=== PATIENT | female | born 1950 | race Caucasian/White ===

== ENCOUNTER 2016-11-29 09:14 | Inpatient (IN) | payer BC ==
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
[2016-11-29 09:40] LABS: ADD DIFF? YES; ADD MORPH? NO; ADD SCAN? NO; ATYPICAL LYMPHOCYTE FLAG 0 (0-99); FRAGMENT RBC FLAG 0 (0-99); HEMATOCRIT 39.2 % (38.0-47.0); HEMOGLOBIN 12.8 g/dL (12.6-16.3); LEFT SHIFT FLG 40 (0-99); LIPEMIA HEMOLYSIS FLAG 80 (0-99); MEAN CELL HEMOGLOBIN CONCENTR. 32.7 g/dL (32.4-36.7); MEAN CELL VOLUME 88.9 fL (81.5-99.8); MEAN PLATELET VOLUME 10.1 fL (8.7-11.7); PLATELET CLUMPS FLAG 20 (0-99); PLATELET COUNT 313 10^3/uL (150-400); RED BLOOD CELL COUNT 4.41 10^6/uL (4.18-5.33); RED CELL DISTRIBUTION WIDTH 14.6 % (11.5-15.2)
[2016-11-29 09:49] LABS: INR 1.28 (0.83-1.16)
[2016-11-29 09:50] LABS: APTT 29.8 SEC (23.0-38.0)
[2016-11-29 09:52] LABS: ANION GAP 15 mEq/L (8-16); CALCIUM 8.5 mg/dL (8.5-10.4); CARBON DIOXIDE 19 mEq/l (22-31); CHLORIDE 107 mEq/L (97-110); ETHANOL SERUM < 10 mg/dL (0-10); GLOMERULAR FILTRATION RATE 56; GLUCOSE 144 mg/dL (70-100); SODIUM 141 mEq/L (134-144)
[2016-11-29] MEDS ORDERED: ONDANSETRON 4 MG/2 ML VIAL ONE ×2 (09:55→14:46)
[2016-11-29 10:12] LABS: PLATELET ESTIMATE ADEQUATE (ADEQ)
[2016-11-29] MEDS ORDERED: ONDANSETRON 4 MG/2 ML VIAL IVP ONE (10:14)
[2016-11-29] MEDS ORDERED: TRANEXAMIC ACID 1,000 MG in NS 100 ML IV ONE (10:31)
[2016-11-29] MEDS ORDERED: TRANEXAMIC ACID 1,000 MG in NS 500 ML IV ONE (10:31)
[2016-11-29] MEDS ORDERED: cefOXitin SODIUM 1 GM in D5W 50 ML IV ONE (10:32)
[2016-11-29] MEDS ORDERED: fentaNYL 100 MCG/2 ML INJ ONE ×3 (10:36→17:47)
[2016-11-29] MEDS ORDERED: fentaNYL 100 MCG/2 ML INJ IVP ONE (10:38)
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
[2016-11-29] MEDS ORDERED: REMIFENTANIL HCL 1 MG VIAL ONE (11:04)
[2016-11-29] MEDS ORDERED: PROPOFOL/EMULSION 500 MG/50 ML BOTTLE IV ONE (11:04)
[2016-11-29] MEDS ORDERED: LIDOCAINE 2% 100 MG/5 ML SYR ONE (11:05)
[2016-11-29] MEDS ORDERED: DEXAMETHASONE 4 MG/ML VIAL ONE ×2 (11:05→14:46)
[2016-11-29] MEDS ORDERED: ROCURONIUM 100 MG/10 ML VIAL ONE (11:05)
[2016-11-29] MEDS ORDERED: ETOMIDATE 20 MG/10 ML VIAL ONE (11:05)
[2016-11-29] MEDS ORDERED: epHEDrine SULFATE 10 MG/ML SYR ONE ×2 (11:05)
[2016-11-29] MEDS ORDERED: PHENYLEPHRINE HCL 100 MCG/ML SYR ONE ×3 (11:05→16:26)
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
[2016-11-29] MEDS ORDERED: PHENYLEPHRINE 10 MG/ML SDV ONE ×2 (12:25→14:10)
[2016-11-29] MEDS ORDERED: IOPAMIDOL (ISOVUE-300) 100 ML BTL ONE ×2 (12:42→13:03)
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
[2016-11-29 13:07] LABS: BICARBONATE 18 mEq/L (22-26); HEMOGLOBIN ABG 10.4 gm/dL (12.3-15.9); IONIZED CALCIUM 1.06 MMOL/L (1.12-1.30); MEASURED OXYGEN SATURATION 85 % (92-95); PCO2 50 mmHg (34-38); PO2 63 mmHg (65-75); SODIUM ABG 140 mEq/L (137-146); TCO2 19 mEq/L (23-27)
[2016-11-29] MEDS ORDERED: ROCURONIUM 50 MG/5 ML VIAL ONE (14:02)
[2016-11-29] MEDS ORDERED: CALCIUM CHLORIDE 1 GM/10 ML INJ ONE (14:12)
[2016-11-29 14:43] LABS: BASE EXCESS -11.5 mEq/L (-2.5-2.5); BICARBONATE 17 mEq/L (22-26); IONIZED CALCIUM 1.58 MMOL/L (1.12-1.30); MEASURED OXYGEN SATURATION 77 % (92-95); PCO2 49 mmHg (34-38); PO2 51 mmHg (65-75); SODIUM ABG 139 mEq/L (137-146); TCO2 18 mEq/L (23-27)
[2016-11-29] MEDS ORDERED: PROPOFOL 200 MG/20 ML VIAL ONE (14:51)
[2016-11-29 15:26] LABS: ALPHA ANGLE 65.8 degrees (53-72); K TIME 1.9 minutes (1-3); MAXIMUM AMPLITUDE 62.1 mm (50-70); R TIME 3.8 minutes (5-10); TEG CONTAINER Citrated Kaolin
[2016-11-29] MEDS ORDERED: SUGAMMADEX SODIUM 200 MG/2 ML VIAL IVP ONE (15:37)
[2016-11-29] MEDS ORDERED: MEPERIDINE 25 MG/ML SYR IVP PRN (16:44)
[2016-11-29] MEDS ORDERED: ALBUTEROL 3 ML DEYVIAL IH PRN (16:44)
[2016-11-29] MEDS ORDERED: METOCLOPRAMIDE 10 MG/2 ML VIAL IVP PRN (16:44)
[2016-11-29] MEDS ORDERED: HYDROmorphONE/DILAUDID 1 MG/ML SYR IVP PRN (16:44)
[2016-11-29] MEDS ORDERED: ONDANSETRON 4 MG/2 ML VIAL IVP PRN ×2 (16:44→17:58)
[2016-11-29] MEDS ORDERED: PROMETHAZINE HCL 25 MG/ML INJ IVP PRN (16:44)
[2016-11-29] MEDS ORDERED: LR 500 ML IV PRN (16:44)
[2016-11-29] MEDS ORDERED: NALOXONE HCL 0.4 MG/ML INJ IVP PRN ×2 (16:44→17:58)
[2016-11-29] MEDS ORDERED: DEXAMETHASONE 4 MG/ML VIAL IVP PRN (16:44)
[2016-11-29] MEDS ORDERED: fentaNYL 100 MCG/2 ML INJ IVP PRN (16:44)
--- NOTE | 2016-11-29 16:52 | POSTANESTH ---
Post Anesthetic Evaluation Cardiovascular Status: Tx Hyper/Hypo-tension Respiratory Status: Tx Decrease in SpO2 Level of Consciousness/Mental Status: Can Participate in Eval Pain Control: Inadeq, Add Tx Required Nausea/Vomiting Control: Adequate, Prn Tx Ordered Complications Possibly Related to Anesthesia: None Noted (in pain, precedex ordered will follow)
[2016-11-29] MEDS ORDERED: DEXMEDETOMIDINE HCL 400 MCG in NS 100 ML IV SCH (17:00)
[2016-11-29 17:51] LABS: HEMATOCRIT 23.7 % (38.0-47.0); HEMOGLOBIN 7.5 g/dL (12.6-16.3); MEAN CELL HEMOGLOBIN 29.4 pg (27.9-34.1); MEAN CELL HEMOGLOBIN CONCENTR. 31.6 g/dL (32.4-36.7); MEAN CELL VOLUME 92.9 fL (81.5-99.8); RED BLOOD CELL COUNT 2.55 10^6/uL (4.18-5.33); RED CELL DISTRIBUTION WIDTH 15.4 % (11.5-15.2)
--- NOTE | 2016-11-29 17:54 | POSTOPPROG ---
Post Op Note Date of Operation: 11/29/16 Surgeon: Earl Cantu Anesthesiologist: Salas Carlton Anesthesia: GET(General Endotracheal) Pre-op Diagnosis: Traumatic Pneumoperitoneum, pancreatic injury, complex right leg laceration Post-op Diagnosis: Perforated right colon, pancreatic contusion, complex right leg laceration Procedure: Ex Lap, Right elvi, ligation mesenteric/panc vein lac, repair r thigh lac Findings: hepatic flexure perforation, large degloving right thigh Inf/Abcess present in the surg proc area at time of surgery?: No EBL: 100-500 Drains: Jaden Moffett Specimen(s): right colon
[2016-11-29] MEDS ORDERED: LR 1,000 ML IV SCH (18:00)
[2016-11-29 18:17] LABS: ALANINE AMINOTRANSFERASE 60 IU/L (9-52); ALBUMIN 1.1 g/dL (3.5-5.0); ALKALINE PHOSPHATASE 36 IU/L (38-126); ANION GAP 11 mEq/L (8-16); ASPARTATE AMINOTRANSFERASE 142 IU/L (14-46); BILIRUBIN,TOTAL 0.8 mg/dL (0.1-1.4); CALCIUM 7.5 mg/dL (8.5-10.4); CARBON DIOXIDE 15 mEq/l (22-31); CHLORIDE 115 mEq/L (97-110); GLOMERULAR FILTRATION RATE 56; GLUCOSE 105 mg/dL (70-100); POTASSIUM 3.9 mEq/L (3.5-5.2); SODIUM 141 mEq/L (134-144); TOTAL PROTEIN 2.2 g/dL (6.3-8.2)
[2016-11-29] MEDS ORDERED: LORazepam 2 MG/ML INJ IVP PRN (18:17)
[2016-11-29 18:33] LABS: INR 2.04 (0.83-1.16); PROTIME(PATIENT) 23.2 SEC (12.0-15.0)
[2016-11-29] MEDS ORDERED: PHYTONADIONE 10 MG in NS 50 ML IV ONE (18:36)
[2016-11-29] MEDS: cefOXitin SODIUM 1 GM in D5W 50 ML IV SCH (18:37)
[2016-11-29 18:38] LABS: APTT 41.5 SEC (23.0-38.0)
[2016-11-29] MEDS: fentaNYL 100 MCG/2 ML INJ IVP PRN ×2 (20:27→22:00)
[2016-11-29 20:55] LABS: HEMATOCRIT 32.1 % (38.0-47.0); HEMOGLOBIN 10.5 g/dL (12.6-16.3)
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
[2016-11-29 20:58] LABS: COLOR RED; LEUKOCYTE ESTERASE,URINE 1+ (NEGATIVE); NITRITE,URINE NEGATIVE (NEGATIVE)
[2016-11-29] MEDS: NS 1,000 ML IV SCH (21:00)
[2016-11-29 21:03] LABS: RBC,URINE 50-182 /hpf (0-3); WBC,URINE 50-182 /hpf (0-3)
[2016-11-29 21:09] LABS: INR 1.42 (0.83-1.16); PROTIME(PATIENT) 17.3 SEC (12.0-15.0)
[2016-11-29 21:10] LABS: APTT 33.6 SEC (23.0-38.0)
[2016-11-29] MEDS ORDERED: ALBUMIN 5% 500 ML BOTTLE IV ONE (21:12)
--- NOTE | 2016-11-29 21:59 | TRAUMAPN ---
Assessment/Plan: postop anemia and coagulopathy - 2u PRBC and 2u FFP with good response. BP remains 90-100. Patient more comfortable with fentanyl as pressure allows. Abd drain thin, serosang, chest tube starting to thin, hooper less hemorrhagic, right thigh still sanguinous. tertiary survey completed with flexed right 4th digit - unable to straighten with diffusely swollen hand. no other new injuries identified. patient preparing to return to CT for repeat head imaging. will obtain pelvic images per discussion with dr. blood when stabilizes and right hand films as well. will add 2 additional units FFP for INR correction given soft BP and persistent thigh sang drainage. care plan reviewed with family at bedside and with nursing staff. Objective: Vital Signs Temp Pulse Resp BP Pulse Ox 36.9 C 112 H 14 99/55 L 100 11/29/16 20:00 11/29/16 20:00 11/29/16 20:00 11/29/16 20:00 11/29/16 20:00 Laboratory Results 11/29/16 20:45 11/29/16 17:45 11/28/16 11/29/16 11/30/16 05:59 05:59 05:59 Intake Total 25405.5 Output Total 1075 Balance 9884.5 PT 17.3 SEC (12.0-15.0) H 11/29/16 20:45 INR 1.42 (0.83-1.16) H 11/29/16 20:45
[2016-11-29] MEDS: FAMOTIDINE 20 MG/NACL 50 ML IV SCH (22:43)
[2016-11-29] MEDS ORDERED: ALBUMIN 5% 1,000 ML IV ONE (23:30)
[2016-11-29] MEDS ORDERED: DOPamine/DEXTROSE/250 ML BAG IV ONE (23:52)
[2016-11-30 01:01] LABS: BICARBONATE 16 mEq/L (22-26); MEASURED OXYGEN SATURATION 85 % (92-95); PCO2 39 mmHg (34-38); PO2 50 mmHg (65-75); TCO2 17 mEq/L (23-27)
[2016-11-30] MEDS ORDERED: PROPOFOL/EMULSION 1,000 MG/100 ML BOTTLE IV ONE (01:39)
--- NOTE | 2016-11-30 01:48 | TRAUMAPN ---
Assessment/Plan: progressive resp distress over past few hours, increasing oxygen requirements to 15L, pain difficult to control because of BP, paO2 50 on 15L. discussed elective intubation with for airway protection as pt showing signs of rapid decline. RSI performed. 7.5 ETT placed without difficulty. right 4th digit relocated and splinted. will notify ortho of hand fx in am (4/5 MC and phalynx fx). postop anemia and coagulopathy - 2u PRBC and 2u FFP with good response. BP remains 90-100. Patient more comfortable with fentanyl as pressure allows. Abd drain thin, serosang, chest tube starting to thin, hooper less hemorrhagic, right thigh still sanguinous. tertiary survey completed with flexed right 4th digit - unable to straighten with diffusely swollen hand. no other new injuries identified. patient preparing to return to CT for repeat head imaging. will obtain pelvic images per discussion with dr. blood when stabilizes and right hand films as well. will add 2 additional units FFP for INR correction given soft BP and persistent thigh sang drainage. care plan reviewed with family at bedside and with nursing staff. Objective: Vital Signs Temp Pulse Resp BP Pulse Ox 36.6 C 123 H 20 103/44 L 95 11/30/16 00:00 11/30/16 01:00 11/30/16 01:00 11/30/16 01:00 11/30/16 01:00 Laboratory Results 11/29/16 20:45 11/29/16 17:45 11/28/16 11/29/16 11/30/16 05:59 05:59 05:59 Intake Total 16742.5 Output Total 1705 Balance 9254.5 PT 17.3 SEC (12.0-15.0) H 11/29/16 20:45 INR 1.42 (0.83-1.16) H 11/29/16 20:45
[2016-11-30] MEDS: cefOXitin SODIUM 1 GM in D5W 50 ML IV SCH ×2 (01:53→08:47)
[2016-11-30] MEDS ORDERED: ETOMIDATE 40 MG/20 ML INJ ONE (01:57)
[2016-11-30] MEDS ORDERED: SUCCINYLCHOLINE CHLORIDE*ANESTHESIA ONLY*200 MG/10 ML SYR IVP ONE ×2 (01:57→02:15)
[2016-11-30] MEDS ORDERED: ETOMIDATE 40 MG/20 ML INJ IV ONE (02:15)
[2016-11-30] MEDS: fentaNYL/NACL 100 ML IV SCH ×2 (02:30→18:47)
[2016-11-30] MEDS: PROPOFOL/EMULSION 100 ML IV SCH ×3 (02:31→19:35)
[2016-11-30 04:25] LABS: HEMATOCRIT 24.7 % (38.0-47.0); HEMOGLOBIN 8.4 g/dL (12.6-16.3); LIPEMIA HEMOLYSIS FLAG 90 (0-99); MEAN CELL HEMOGLOBIN 29.8 pg (27.9-34.1); MEAN CELL VOLUME 87.6 fL (81.5-99.8); PLATELET CLUMPS FLAG 0 (0-99); RED BLOOD CELL COUNT 2.82 10^6/uL (4.18-5.33); RED CELL DISTRIBUTION WIDTH 15.6 % (11.5-15.2)
[2016-11-30 04:28] LABS: PLATELET COUNT 44 10^3/uL (150-400)
[2016-11-30 04:33] LABS: INR 1.48 (0.83-1.16); PROTIME(PATIENT) 17.9 SEC (12.0-15.0)
[2016-11-30 04:34] LABS: APTT 33.5 SEC (23.0-38.0)
[2016-11-30 04:44] LABS: ANION GAP 9 mEq/L (8-16); CARBON DIOXIDE 19 mEq/l (22-31); CHLORIDE 112 mEq/L (97-110); CREATININE 1.5 mg/dL (0.6-1.0); GLOMERULAR FILTRATION RATE 35; GLUCOSE 98 mg/dL (70-100); MAGNESIUM 1.5 mg/dL (1.6-2.3); POTASSIUM 3.8 mEq/L (3.5-5.2); SODIUM 140 mEq/L (134-144)
[2016-11-30 04:59] LABS: PLATELET ESTIMATE DECREASED (ADEQ)
[2016-11-30] MEDS ORDERED: MAGNESIUM SULF 4 GM/WATER 100 ML BAG IV ONE (05:30)
[2016-11-30] MEDS: NS 1,000 ML IV SCH ×2 (05:37→18:45)
[2016-11-30] MEDS ORDERED: PROTOCOL MAGNESIUM 1 DOSE IV PRN (06:00)
[2016-11-30] MEDS ORDERED: PROTOCOL POTASSIUM 1 DOSE MISC PRN (06:00)
--- NOTE | 2016-11-30 07:38 | GOP ---
[f rep st] OPERATIVE REPORT DATE OF OPERATION: 11/30/2016 SURGEON: Earl Cantu MD PREOPERATIVE DIAGNOSIS: Respiratory failure. POSTOPERATIVE DIAGNOSIS: Respiratory failure. PROCEDURE PERFORMED: Endotracheal intubation. DESCRIPTION OF PROCEDURE: The patient was pre oxygenated with a non-rebreather face mask. 30 mg of etomidate and 100 mg of succinylcholine was administered. A #3 Barnett blade was used. Vocal cords were easily visualized. A 7.5 endotracheal tube was passed to 22 cm from the teeth. End-tidal CO2 was noted on the colorimeter. Bilateral breath sounds were identified. The tube was secured. A portable chest x-ray was obtained immediately afterwards. The patient tolerated the procedure well. No hemodynamic changes occurred. /[id number]/MODL MTDD
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
[2016-11-30] MEDS ORDERED: POTASSIUM Cl (KCl) 50 ML IV ONE (08:44)
[2016-11-30] MEDS ORDERED: POTASSIUM Cl (KCl) 10 MEQ/100 ML BAG IV ONE (08:46)
[2016-11-30 08:52] LABS: ASSIST CONTROL YES; BICARBONATE 17 mEq/L (22-26); END TIDAL CO2 39; MEASURED OXYGEN SATURATION 99 % (92-95); O2 CONCENTRATIION 100 % (0-100); P/F RATIO 141 RATIO; PCO2 38 mmHg (34-38); PO2 141 mmHg (65-75); TCO2 18 mEq/L (23-27); TOTAL RATE 20
[2016-11-30] MEDS ORDERED: PARoxetine HCL 10 MG TAB PO SCH (09:00)
[2016-11-30] MEDS: FAMOTIDINE 20 MG/NACL 50 ML IV SCH (09:02)
[2016-11-30 10:07] LABS: ADD MORPH? NO; ADD SCAN? YES; ATYPICAL LYMPHOCYTE FLAG 0 (0-99); FRAGMENT RBC FLAG 0 (0-99); HEMATOCRIT 24.8 % (38.0-47.0); HEMOGLOBIN 8.5 g/dL (12.6-16.3); LIPEMIA HEMOLYSIS FLAG 90 (0-99); MEAN CELL HEMOGLOBIN 29.7 pg (27.9-34.1); MEAN CELL HEMOGLOBIN CONCENTR. 34.3 g/dL (32.4-36.7); MEAN CELL VOLUME 86.7 fL (81.5-99.8); MEAN PLATELET VOLUME 10.8 fL (8.7-11.7); PLATELET CLUMPS FLAG 0 (0-99); PLATELET COUNT 61 10^3/uL (150-400); RED BLOOD CELL COUNT 2.86 10^6/uL (4.18-5.33); RED CELL DISTRIBUTION WIDTH 15.7 % (11.5-15.2)
[2016-11-30 10:08] LABS: LEFT SHIFT FLG 300 (0-99)
[2016-11-30 10:20] LABS: INR 1.48 (0.83-1.16); PROTIME(PATIENT) 17.9 SEC (12.0-15.0)
[2016-11-30 10:21] LABS: APTT 33.7 SEC (23.0-38.0)
[2016-11-30 10:38] LABS: ADD DIFF? YES; SCAN POSITIVE
[2016-11-30 10:49] LABS: PLATELET ESTIMATE DECREASED (ADEQ)
[2016-11-30 10:50] LABS: ECHINOCYTES 1+; POLYCHROMASIA 1+
[2016-11-30] MEDS ORDERED: DOPamine/DEXTROSE/250 ML BAG IV ONE ×2 (11:00→14:00)
[2016-11-30] MEDS: NOREPINEPHRINE/NS 500 ML IV SCH ×2 (11:17→21:49)
[2016-11-30] MEDS: ERTAPENEM 1 GM in NS 100 ML IV SCH (11:21)
[2016-11-30 12:37] LABS: POTASSIUM 4.4 mEq/L (3.5-5.2)
[2016-11-30 14:21] LABS: % IMMATURE GRANULYOCYTES 0.9 % (0.0-1.1); ABSOLUTE IMMATURE GRANULOCYTES 0.08 10^3/uL (0.00-0.10); ADD DIFF? NO; ADD MORPH? NO; ADD SCAN? YES; ATYPICAL LYMPHOCYTE FLAG 0 (0-99); FRAGMENT RBC FLAG 0 (0-99); HEMATOCRIT 26.1 % (38.0-47.0); LIPEMIA HEMOLYSIS FLAG 90 (0-99); MEAN CELL HEMOGLOBIN 29.7 pg (27.9-34.1); MEAN CELL HEMOGLOBIN CONCENTR. 34.5 g/dL (32.4-36.7); MEAN CELL VOLUME 86.1 fL (81.5-99.8); MEAN PLATELET VOLUME 10.6 fL (8.7-11.7); PLATELET CLUMPS FLAG 10 (0-99); PLATELET COUNT 68 10^3/uL (150-400); RED BLOOD CELL COUNT 3.03 10^6/uL (4.18-5.33); RED CELL DISTRIBUTION WIDTH 15.9 % (11.5-15.2)
[2016-11-30 14:30] LABS: LEFT SHIFT FLG 300 (0-99)
[2016-11-30 14:40] LABS: INR 1.59 (0.83-1.16)
[2016-11-30 15:08] LABS: SCAN POSITIVE
[2016-11-30 15:14] LABS: PLATELET ESTIMATE DECREASED (ADEQ)
[2016-11-30 16:16] LABS: BASE EXCESS -8.2 mEq/L (-2.5-2.5); BICARBONATE 16 mEq/L (22-26); MEASURED OXYGEN SATURATION 95 % (92-95); PCO2 29 mmHg (34-38); PO2 74 mmHg (65-75); TCO2 17 mEq/L (23-27)
[2016-11-30 16:17] LABS: ASSIST CONTROL YES; END TIDAL CO2 32; TOTAL RATE 22
[2016-11-30 19:41] LABS: POTASSIUM 4.8 mEq/L (3.5-5.2)
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
--- NOTE | 2016-11-30 23:17 | SOAPPROG ---
Downtime Inpatient MD Late Entry SOAP Note: PM visit: Gabriela remains intubated/sedated, remains on Levophed and low dose Dopamine with good UO, CVP 12-13 Lungs diminished but clear, CVS RR/tachy, abd-absent bowel sounds/dressings dry , ext warm/dry with palpable pedal pulses ECHO-trivial pericardial effusion, RVSP 44/no sig valve problems repeat labs ordered Cont vent/ionotropic support Oh Clarke MD, FACS
[2016-11-30 23:18] LABS: ADD DIFF? YES; ADD MORPH? NO; ATYPICAL LYMPHOCYTE FLAG 0 (0-99); FRAGMENT RBC FLAG 0 (0-99); HEMOGLOBIN 8.3 g/dL (12.6-16.3); LIPEMIA HEMOLYSIS FLAG 90 (0-99)
[2016-11-30 23:22] LABS: MEAN CELL HEMOGLOBIN 29.9 pg (27.9-34.1); MEAN CELL HEMOGLOBIN CONCENTR. 34.6 g/dL (32.4-36.7); MEAN CELL VOLUME 86.3 fL (81.5-99.8); PLATELET CLUMPS FLAG 10 (0-99); PLATELET COUNT 57 10^3/uL (150-400); RED BLOOD CELL COUNT 2.78 10^6/uL (4.18-5.33); RED CELL DISTRIBUTION WIDTH 16.2 % (11.5-15.2)
[2016-11-30 23:24] LABS: LEFT SHIFT FLG 300 (0-99)
[2016-11-30 23:25] LABS: ADD SCAN? NO
[2016-11-30 23:27] LABS: INR 1.83 (0.83-1.16); PROTIME(PATIENT) 21.2 SEC (12.0-15.0)
[2016-11-30 23:28] LABS: APTT 35.5 SEC (23.0-38.0)
[2016-11-30 23:30] LABS: ANION GAP 9 mEq/L (8-16); CALCIUM 7.6 mg/dL (8.5-10.4); CARBON DIOXIDE 18 mEq/l (22-31); CHLORIDE 113 mEq/L (97-110); CREATININE 1.8 mg/dL (0.6-1.0); GLOMERULAR FILTRATION RATE 28; GLUCOSE 90 mg/dL (70-100); POTASSIUM 4.8 mEq/L (3.5-5.2); SODIUM 140 mEq/L (134-144)
[2016-11-30 23:55] LABS: PLATELET ESTIMATE DECREASED (ADEQ); POLYCHROMASIA 1+
[2016-12-01] MEDS: PROPOFOL/EMULSION 100 ML IV SCH ×3 (00:49→23:22)
[2016-12-01] MEDS: NOREPINEPHRINE/NS 500 ML IV SCH ×4 (01:55→20:31)
[2016-12-01] MEDS: NS 1,000 ML IV SCH ×2 (03:00→20:32)
[2016-12-01 05:39] LABS: ADD MORPH? NO; ADD SCAN? YES; ATYPICAL LYMPHOCYTE FLAG 0 (0-99); FRAGMENT RBC FLAG 0 (0-99); LIPEMIA HEMOLYSIS FLAG 90 (0-99)
[2016-12-01 05:42] LABS: ABSOLUTE NRBC COUNT 0.02 10^3/uL (0-0.01); HEMATOCRIT 22.7 % (38.0-47.0); MEAN CELL HEMOGLOBIN 30.4 pg (27.9-34.1); MEAN CELL HEMOGLOBIN CONCENTR. 35.2 g/dL (32.4-36.7); MEAN CELL VOLUME 86.3 fL (81.5-99.8); MEAN PLATELET VOLUME 11.1 fL (8.7-11.7); NRBC-AUTO% 0.2 % (0.0-0.2); PLATELET CLUMPS FLAG 10 (0-99); PLATELET COUNT 65 10^3/uL (150-400); RED BLOOD CELL COUNT 2.63 10^6/uL (4.18-5.33); RED CELL DISTRIBUTION WIDTH 16.7 % (11.5-15.2)
[2016-12-01 05:46] LABS: LEFT SHIFT FLG 300 (0-99)
[2016-12-01 05:48] LABS: ALANINE AMINOTRANSFERASE 69 IU/L (9-52); ALKALINE PHOSPHATASE 59 IU/L (38-126); ANION GAP 7 mEq/L (8-16); APTT 35.9 SEC (23.0-38.0); ASPARTATE AMINOTRANSFERASE 133 IU/L (14-46); BILIRUBIN,TOTAL 1.6 mg/dL (0.1-1.4); CALCIUM 7.5 mg/dL (8.5-10.4); CARBON DIOXIDE 18 mEq/l (22-31); CHLORIDE 114 mEq/L (97-110); CREATININE 1.9 mg/dL (0.6-1.0); GLOMERULAR FILTRATION RATE 27; GLUCOSE 88 mg/dL (70-100); INR 1.79 (0.83-1.16); MAGNESIUM 2.4 mg/dL (1.6-2.3); POTASSIUM 4.7 mEq/L (3.5-5.2); PROTIME(PATIENT) 20.9 SEC (12.0-15.0); SODIUM 139 mEq/L (134-144)
[2016-12-01 06:21] LABS: ADD DIFF? YES; SCAN POSITIVE
[2016-12-01 06:37] LABS: PLATELET ESTIMATE DECREASED (ADEQ); POLYCHROMASIA 1+
[2016-12-01 06:38] LABS: TOXIC GRANULATION PRESENT; TOXIC VACUOLIZATION PRESENT
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
[2016-12-01 08:52] LABS: COLOR AMBER; LEUKOCYTE ESTERASE,URINE NEGATIVE (NEGATIVE); NITRITE,URINE NEGATIVE (NEGATIVE)
[2016-12-01] MEDS: FAMOTIDINE 20 MG/NACL 50 ML IV SCH (09:11)
[2016-12-01] MEDS: ERTAPENEM 1 GM in NS 100 ML IV SCH (09:11)
[2016-12-01 09:15] LABS: AMORPHOUS PRESENT /hpf (NONE-1+); MUCUS TRACE /lpf (NONE-1+); RBC,URINE 50-182 /hpf (0-3); WBC,URINE 50-182 /hpf (0-3)
[2016-12-01] MEDS: PARoxetine HCL 10 MG TAB TUBE SCH (10:18)
[2016-12-01] MEDS: fentaNYL/NACL 100 ML IV SCH ×2 (10:18→20:32)
[2016-12-01 10:21] LABS: RANDOM URINE PROTEIN 86 mg/dL (0-11)
[2016-12-01] MEDS ORDERED: PHYTONADIONE 10 MG in NS 50 ML IV ONE (10:30)
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
[2016-12-01 13:18] LABS: HEMATOCRIT 20.7 % (38.0-47.0); HEMOGLOBIN 7.2 g/dL (12.6-16.3); MEAN CELL HEMOGLOBIN 30.4 pg (27.9-34.1); MEAN CELL HEMOGLOBIN CONCENTR. 34.8 g/dL (32.4-36.7); MEAN CELL VOLUME 87.3 fL (81.5-99.8); RED BLOOD CELL COUNT 2.37 10^6/uL (4.18-5.33); RED CELL DISTRIBUTION WIDTH 16.9 % (11.5-15.2)
[2016-12-01 13:31] LABS: POTASSIUM 4.5 mEq/L (3.5-5.2)
[2016-12-01 17:26] LABS: K TIME 1.2 minutes (1-3); R TIME 5.5 minutes (5-10); TEG CONTAINER Citrated Kaolin
[2016-12-01 17:27] LABS: ALPHA ANGLE 71.1 degrees (53-72); MAXIMUM AMPLITUDE 66.5 mm (50-70)
[2016-12-01 18:21] LABS: POTASSIUM 4.4 mEq/L (3.5-5.2)
[2016-12-01 19:14] LABS: HEMATOCRIT 27.6 % (38.0-47.0); HEMOGLOBIN 9.5 g/dL (12.6-16.3); MEAN CELL HEMOGLOBIN 29.9 pg (27.9-34.1); MEAN CELL HEMOGLOBIN CONCENTR. 34.4 g/dL (32.4-36.7); MEAN CELL VOLUME 86.8 fL (81.5-99.8); RED BLOOD CELL COUNT 3.18 10^6/uL (4.18-5.33); RED CELL DISTRIBUTION WIDTH 16.1 % (11.5-15.2)
[2016-12-01] MEDS ORDERED: PETROLAT,WHT/MIN OIL/SOD CHL 3.5 GM OPHT.OINT EACHEYE PRN (20:05)
[2016-12-01] MEDS ORDERED: BACITRACIN OINTMENT 1 PACKET TP PRN (21:12)
[2016-12-01] MEDS ORDERED: FUROSEMIDE 40 MG/4 ML VIAL IVP ONE (22:00)
[2016-12-01] MEDS ORDERED: LIDOCAINE 2% JELLY 20 ML (UROJECT) ONE (22:43)
[2016-12-01] MEDS ORDERED: LIDOCAINE 2% JELLY 5 ML TUBE ONE (22:48)
[2016-12-01 23:59] LABS: BASE EXCESS -8.7 mEq/L (-2.5-2.5); BICARBONATE 15 mEq/L (22-26); MEASURED OXYGEN SATURATION 97 % (92-95); PCO2 28 mmHg (34-38); PO2 95 mmHg (65-75); TCO2 16 mEq/L (23-27)
[2016-12-02] LABS: ASSIST CONTROL YES; END TIDAL CO2 33; O2 CONCENTRATIION 100 % (0-100); P/F RATIO 95 RATIO
[2016-12-02] MEDS: ACETYLCYSTEINE 20% IH/PO 30 ML VIAL IH SCH ×2 (00:24→06:09)
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
[2016-12-02 05:20] LABS: BASE EXCESS -7.6 mEq/L (-2.5-2.5); BICARBONATE 16 mEq/L (22-26); MEASURED OXYGEN SATURATION 91 % (92-95); PCO2 28 mmHg (34-38); PO2 61 mmHg (65-75); TCO2 17 mEq/L (23-27)
[2016-12-02 05:21] LABS: END TIDAL CO2 30; O2 CONCENTRATIION 70 % (0-100)
[2016-12-02 05:34] LABS: INR 1.36 (0.83-1.16); PROTIME(PATIENT) 16.8 SEC (12.0-15.0)
[2016-12-02 05:38] LABS: AMYLASE 140 IU/L (30-110); ANION GAP 9 mEq/L (8-16); CALCIUM 7.7 mg/dL (8.5-10.4); CARBON DIOXIDE 17 mEq/l (22-31); CHLORIDE 117 mEq/L (97-110); CREATININE 1.7 mg/dL (0.6-1.0); GLOMERULAR FILTRATION RATE 30; GLUCOSE 89 mg/dL (70-100); MAGNESIUM 2.1 mg/dL (1.6-2.3); SODIUM 143 mEq/L (134-144)
[2016-12-02 05:42] LABS: ADD MORPH? NO; ADD SCAN? YES; ATYPICAL LYMPHOCYTE FLAG 0 (0-99); FRAGMENT RBC FLAG 0 (0-99); HEMATOCRIT 26.6 % (38.0-47.0); HEMOGLOBIN 9.3 g/dL (12.6-16.3); LIPEMIA HEMOLYSIS FLAG 90 (0-99); MEAN CELL HEMOGLOBIN 30.2 pg (27.9-34.1); MEAN CELL VOLUME 86.4 fL (81.5-99.8); MEAN PLATELET VOLUME 12.1 fL (8.7-11.7); PLATELET CLUMPS FLAG 10 (0-99); PLATELET COUNT 56 10^3/uL (150-400); RED BLOOD CELL COUNT 3.08 10^6/uL (4.18-5.33); RED CELL DISTRIBUTION WIDTH 16.9 % (11.5-15.2)
[2016-12-02 05:48] LABS: LEFT SHIFT FLG 300 (0-99)
[2016-12-02] MEDS ORDERED: FUROSEMIDE 40 MG/4 ML VIAL IVP ONE ×3 (06:00→18:00)
[2016-12-02 06:16] LABS: ADD DIFF? YES; SCAN POSITIVE
[2016-12-02 06:20] LABS: PLATELET ESTIMATE DECREASED (ADEQ); TOXIC VACUOLIZATION PRESENT
--- NOTE | 2016-12-02 07:36 | GPN ---
[f rep st] PROCEDURE NOTE DATE OF PROCEDURE: 12/02/2016 NAME OF PROCEDURE: Left dorsalis pedis arterial line placement. DESCRIPTION OF PROCEDURE: The patient was prepped and draped in usual sterile fashion. Oral permission was granted from the . A single stick was made in the dorsalis pedis artery and the arterial line catheter was then threaded without difficulty. Good pulsatile flow was achieved. It was connected to a transducer and sutured in place with a 3-0 silk suture. The wound was dressed and covered with Opsite. She tolerated the procedure well and there were no complications. /[id number]/MODL MTDD
--- NOTE | 2016-12-02 07:52 | GPN ---
[f rep st] PROCEDURE NOTE PROCEDURE: Fiberoptic bronchoscopy. INDICATION: Worsening hypoxemia and atelectasis. ANESTHESIA GIVEN: Patient is currently sedated and on mechanical ventilation. The procedure was performed in the intensive care unit with continuous pulse ox, EKG, and blood pres sure monitoring. Please note, N95 masks were used throughout the procedure. The patient is on [facility] anical ventilation, which is by definition a closed system and posed no risk to the airborne pathoge ns. DESCRIPTION OF PROCEDURE: After informed consent was obtained and time-out was initiated, and [facility] hoscope was entered through a #8 endotracheal tube. Distal trachea and minesh were visualized and s howed no endobronchial lesions, normal-appearing mucosa. Bronchoscope was entered in the left lung. Left upper lobe, lingula, left lower lobe including sub-segments were subsequently visualized and showed no endobronchial lesions, normal-appearing mucosa, and no mucus plugging. Bronchoscope was e ntered in the right lung. Right upper lobe, right middle lobe, right lower lobe, including sub-segm ents were subsequently visualized and again showed no endobronchial lesions, normal-appearing mucosa , and no evidence of mucus plugging. Bronchoscope was then removed. The patient tolerated the proc edure well. There were no apparent complications. /[id number]/MODL
[2016-12-02] MEDS: ERTAPENEM 1 GM in NS 100 ML IV SCH (08:07)
[2016-12-02] MEDS: FAMOTIDINE 20 MG/NACL 50 ML IV SCH (08:08)
[2016-12-02] MEDS: PARoxetine HCL 10 MG TAB TUBE SCH (08:09)
[2016-12-02] MEDS: PROPOFOL/EMULSION 100 ML IV SCH ×2 (08:24→23:22)
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
[2016-12-02] MEDS ORDERED: LIDOCAINE 1% 300 MG/30 ML SDV MISC ONE (10:20)
[2016-12-02] MEDS ORDERED: LIDOCAINE 2% JELLY 5 ML TUBE TP ONE (10:20)
[2016-12-02] MEDS: NS 1,000 ML IV SCH (11:29)
--- NOTE | 2016-12-02 11:52 | GPN ---
[f rep st] PROCEDURE NOTE PROCEDURE: Fiberoptic bronchoscopy. INDICATION: Respiratory failure. ANESTHESIA: Given. The patient is currently sedated on mechanical ventilation. We used 1% lidocai ne topically. The procedure was performed in the intensive care unit with continuous pulse ox EKG and blood pressu re monitoring. Please note, N95 masks were used for all throughout the procedure. The patient is o n mechanical ventilation, which is by definition a closed system and poses no risk to airborne patho gens. DESCRIPTION OF PROCEDURE: The bronchoscope was entered through a #8 endotracheal tube. Distal trac hea and minesh were visualized and showed no endobronchial lesions and normal-appearing mucosa. The bronchoscope was then in the left lung. The left upper lobe lingula and left lower lobe, includ ing subsegments, were subsequently visualized and showed no endobronchial lesions and normal-appeari ng mucosa. The bronchoscope was then entered into the right lung. Right upper lobe, right middle lobe and righ t lower lobe, including subsegments, were subsequently visualized and again showed no endobronchial lesion and normal-appearing mucosa. There was no mucus plugging seen in either lung during the proc edure. The bronchoscope was then removed. The patient tolerated the procedure well. There were no apparen t complications. /[id number]/MODL
[2016-12-02] MEDS: fentaNYL/NACL 100 ML IV SCH ×2 (12:21→23:22)
[2016-12-02 12:48] LABS: POTASSIUM 4.1 mEq/L (3.5-5.2)
[2016-12-02] MEDS: NOREPINEPHRINE/NS 500 ML IV SCH ×2 (14:00→23:22)
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
[2016-12-02] MEDS ORDERED: FUROSEMIDE 100 MG/10 ML VIAL IV ONE (18:00)
[2016-12-02 18:50] LABS: BASE EXCESS -7.2 mEq/L (-2.5-2.5); BICARBONATE 16 mEq/L (22-26); MEASURED OXYGEN SATURATION 95 % (92-95); PCO2 27 mmHg (34-38); PO2 76 mmHg (65-75); TCO2 17 mEq/L (23-27)
[2016-12-02 18:51] LABS: ASSIST CONTROL YES; O2 CONCENTRATIION 100 % (0-100); P/F RATIO 76 RATIO; TOTAL RATE 22
[2016-12-02 19:29] LABS: POTASSIUM 3.9 mEq/L (3.5-5.2)
[2016-12-02] MEDS ORDERED: BACITRACIN ZINC 14.2 GM OINTTUBE TP PRN (19:54)
[2016-12-02] MEDS ORDERED: POTASSIUM Cl (KCl) 50 ML IV ONE (20:17)
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
[2016-12-03 03:29] LABS: BASE EXCESS -8.7 mEq/L (-2.5-2.5); BICARBONATE 15 mEq/L (22-26); MEASURED OXYGEN SATURATION 88 % (92-95); PCO2 29 mmHg (34-38); PO2 59 mmHg (65-75); TCO2 16 mEq/L (23-27)
[2016-12-03 03:30] LABS: ADD DIFF? YES; ADD MORPH? NO; ATYPICAL LYMPHOCYTE FLAG 0 (0-99); END TIDAL CO2 30; FRAGMENT RBC FLAG 0 (0-99); HEMOGLOBIN 9.9 g/dL (12.6-16.3); LIPEMIA HEMOLYSIS FLAG 90 (0-99); MEAN CELL HEMOGLOBIN 29.7 pg (27.9-34.1); MEAN CELL HEMOGLOBIN CONCENTR. 34.1 g/dL (32.4-36.7); MEAN CELL VOLUME 87.1 fL (81.5-99.8); MEAN PLATELET VOLUME 11.2 fL (8.7-11.7); PLATELET CLUMPS FLAG 0 (0-99); PLATELET COUNT 76 10^3/uL (150-400); RED BLOOD CELL COUNT 3.33 10^6/uL (4.18-5.33); RED CELL DISTRIBUTION WIDTH 16.6 % (11.5-15.2)
[2016-12-03 03:31] LABS: O2 CONCENTRATIION 89 % (0-100); P/F RATIO 66 RATIO
[2016-12-03 03:41] LABS: ALANINE AMINOTRANSFERASE 74 IU/L (9-52); ALBUMIN 2.4 g/dL (3.5-5.0); ALKALINE PHOSPHATASE 105 IU/L (38-126); ANION GAP 12 mEq/L (8-16); ASPARTATE AMINOTRANSFERASE 113 IU/L (14-46); BILIRUBIN,TOTAL 1.8 mg/dL (0.1-1.4); CALCIUM 8.2 mg/dL (8.5-10.4); CARBON DIOXIDE 17 mEq/l (22-31); CHLORIDE 115 mEq/L (97-110); CREATININE 2.2 mg/dL (0.6-1.0); GLOMERULAR FILTRATION RATE 22; GLUCOSE 91 mg/dL (70-100); MAGNESIUM 2.2 mg/dL (1.6-2.3); SODIUM 144 mEq/L (134-144); TOTAL PROTEIN 4.8 g/dL (6.3-8.2)
[2016-12-03 03:43] LABS: ADD SCAN? NO; LEFT SHIFT FLG 150 (0-99)
[2016-12-03 04:22] LABS: PLATELET ESTIMATE DECREASED (ADEQ)
[2016-12-03 04:27] LABS: KERATOCYTES 1+; LARGE PLATELETS PRESENT; POLYCHROMASIA 1+
[2016-12-03] MEDS: NOREPINEPHRINE/NS 500 ML IV SCH (04:41)
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
[2016-12-03] MEDS ORDERED: NOREPINEPHRINE BITARTRATE 16 MG in D5W 250 ML IV SCH (08:00)
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
[2016-12-03] MEDS: VECURONIUM BROMIDE 50 MG in D5W 50 ML IV SCH (09:11)
[2016-12-03] MEDS: FAMOTIDINE 20 MG/NACL 50 ML IV SCH (09:37)
[2016-12-03] MEDS: PARoxetine HCL 10 MG TAB TUBE SCH (09:37)
[2016-12-03] MEDS: ERTAPENEM 1 GM in NS 100 ML IV SCH (09:37)
[2016-12-03] MEDS ORDERED: HEPARIN/DEXTROSE 500 ML IV SCH (10:15)
[2016-12-03] MEDS ORDERED: HEPARIN 10,000 UNIT/10 ML MDV IVP ONE (10:16)
[2016-12-03 11:11] LABS: ADD DIFF? YES; ADD MORPH? NO; ATYPICAL LYMPHOCYTE FLAG 0 (0-99); FRAGMENT RBC FLAG 0 (0-99); HEMATOCRIT 30.5 % (38.0-47.0); HEMOGLOBIN 10.2 g/dL (12.6-16.3); LIPEMIA HEMOLYSIS FLAG 80 (0-99); MEAN CELL HEMOGLOBIN 29.7 pg (27.9-34.1); MEAN CELL HEMOGLOBIN CONCENTR. 33.4 g/dL (32.4-36.7); MEAN CELL VOLUME 88.9 fL (81.5-99.8); MEAN PLATELET VOLUME 11.5 fL (8.7-11.7); PLATELET CLUMPS FLAG 0 (0-99); PLATELET COUNT 87 10^3/uL (150-400); RED BLOOD CELL COUNT 3.43 10^6/uL (4.18-5.33); RED CELL DISTRIBUTION WIDTH 16.9 % (11.5-15.2)
[2016-12-03 11:15] LABS: LEFT SHIFT FLG 170 (0-99)
[2016-12-03 11:16] LABS: ADD SCAN? NO
[2016-12-03 11:32] LABS: INR 1.28 (0.83-1.16)
[2016-12-03 11:33] LABS: APTT 28.6 SEC (23.0-38.0)
[2016-12-03 11:45] LABS: PLATELET ESTIMATE DECREASED (ADEQ)
[2016-12-03] MEDS: HEPARIN/DEXTROSE 500 ML IV SCH (11:47)
[2016-12-03] MEDS: PROPOFOL/EMULSION 100 ML IV SCH (11:48)
[2016-12-03 11:50] LABS: BASE EXCESS -9.9 mEq/L (-2.5-2.5); BICARBONATE 17 mEq/L (22-26); MEASURED OXYGEN SATURATION 87 % (92-95); PCO2 41 mmHg (34-38); PO2 66 mmHg (65-75); TCO2 18 mEq/L (23-27)
[2016-12-03 11:52] LABS: ASSIST CONTROL YES; PRESSURE CONTROL YES
[2016-12-03 11:53] LABS: END TIDAL CO2 41; I-TIME 0.5 SECS; TOTAL RATE 20
[2016-12-03 11:54] LABS: PRESSURE SUPPORT 20
[2016-12-03] MEDS: fentaNYL/NACL 100 ML IV SCH (13:43)
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
--- NOTE | 2016-12-03 15:59 | ASMTCMCOM ---
CM Note CM Note Notes: All participants have been notified of family meeting tomorrow 12-04-16 @ 12:30.CM will follow. Date Signed: 12/03/2016 03:58 PM Electronically Signed By:Mili Gaston
--- NOTE | 2016-12-03 16:00 | ECHO ---
[id number] + + [address] : : [place] [address] : : [phone] + + Adult Echocardiographic Report + --+ :Name: Nita MORENO Date: 12/03/2016 10:30 AM : : Hospital Admission Number: [id number] Location: 2 54: :: 1950 Gender: Female Height: 66 in : :Age: 66 yrs Race: WH Weight: 218 lb : :Reason For Study: Resp failure : : BSA: 2.1 meters2 : + --+ MMode/2D Measurements \T\ Calculations LVIDd: 3.6 cm EDV(Teich): 55.2 ml Normal Measurement Values: + + :LVIDd (3.5-5.7cm) IVSd (0.6-1.1cm) LVPWd (0.6-1.1cm) Aortic Root (2.0-3.7cm)Left Atrium (1.5-4.0cm): :LV Vol(d) (76-115ml) LV Vol(s) (29-48ml) Ejec Fraction (50-65%)PV Jerzy (0.6- 1.2m/s) TV Jerzy (0.4-1.0m/s) : :MV E Jerzy (0.8-1.0m/s)MV A Jerzy (0.3-1.0m/s)LVOT Jerzy (0.7-1.2m/s) Asc Ao Jerzy ( 0.9-1.8m/s) : + + Doppler Measurements \T\ Calculations TR max jerzy: 290.0 cm/sec TR max P.6 mmHg RAP systole: 20.0 mmHg RVSP(TR): 53.6 mmHg Left Ventricle The left ventricular cavity is small. There is normal left ventricular wall thickness. The left ventricle is hyperdynamic. Ejection Fraction = 75-80%. Flattened septum is consistent with RV pressure/volume overload. Right Ventricle The right ventricle is moderate to severely dilated. The right ventricular systolic function is moderate to severely reduced. Atria The left atrial size is normal. The right atrium is moderately dilated. Mitral Valve The mitral valve is normal in structure and function. There is no mitral regurgitation noted. Tricuspid Valve Normal tricuspid valve. Right ventricular systolic pressure is 54mmHg. There is Doppler evidence for mild pulmonary hypertension. There is mild to moderate tricuspid regurgitation. Aortic Valve The aortic valve is trileaflet. The aortic valve opens well. There is no aortic stenosis. There is no aortic insufficiency. Pulmonic Valve The pulmonic valve is not well visualized. There is no pulmonic valvular regurgitation. Great Vessels The aortic root is normal size. Pericardium/Pleural There is no pericardial effusion. Conclusion A complete two-dimensional transthoracic echocardiogram was performed (2D, M-mode, Doppler and color flow Doppler). Compared to the echo 3 days ago, the right sided dimensions have increased significantly. (1) Left ventricular systolic ejection fraction was normal (60-65%) - LV chamber dimensions are small (2) Severely enlarged RV chamber dimension wtih moderate to severe reduction in systolic function (3) No left ventricular hypertrophy (4) Diastolic function was not assessed (5) Normal left atrial dimension with moderate dilation of the right atrial dimensions (6) Grossly normal mitral valve (7) Trileaflet aortic valve without sclerosis or appreciable insufficiency (8) Mild to moderate tricuspid regurgitation - RVSP was 50-55 mm Hg (9) Poor visualization of the pulmonic valve (10) No pericardial effusion (11) In comparison to prior echocardiogram, there has been further enlargement in the RV chamber. RVSP is also further elevated (from 45 mm Hg to 55 mm Hg. Final Reading Physician: Franco Petersen signed on 12/03/2016 03:58 PM Ordering Physician: Darion Pierre Performed By: Sylvia Bray RDCS
[2016-12-03] MEDS ORDERED: METOCLOPRAMIDE 10 MG/2 ML VIAL IVP PRN (16:39)
[2016-12-04] MEDS: fentaNYL/NACL 100 ML IV SCH ×2 (02:30→15:00)
[2016-12-04] MEDS: VECURONIUM BROMIDE 50 MG in D5W 50 ML IV SCH (02:31)
[2016-12-04 05:41] LABS: BASE EXCESS -3.9 mEq/L (-2.5-2.5); BICARBONATE 18 mEq/L (22-26); MEASURED OXYGEN SATURATION 96 % (92-95); PCO2 26 mmHg (34-38); PO2 82 mmHg (65-75); TCO2 19 mEq/L (23-27)
[2016-12-04 05:42] LABS: ABSOLUTE NRBC COUNT 0.02 10^3/uL (0-0.01); ADD DIFF? YES; ADD MORPH? NO; ATYPICAL LYMPHOCYTE FLAG 0 (0-99); FRAGMENT RBC FLAG 0 (0-99); HEMATOCRIT 27.6 % (38.0-47.0); HEMOGLOBIN 9.5 g/dL (12.6-16.3); LIPEMIA HEMOLYSIS FLAG 90 (0-99); MEAN CELL HEMOGLOBIN 29.5 pg (27.9-34.1); MEAN CELL HEMOGLOBIN CONCENTR. 34.4 g/dL (32.4-36.7); MEAN CELL VOLUME 85.7 fL (81.5-99.8); MEAN PLATELET VOLUME 11.3 fL (8.7-11.7); NRBC-AUTO% 0.3 % (0.0-0.2); PLATELET CLUMPS FLAG 0 (0-99); PLATELET COUNT 81 10^3/uL (150-400); RED BLOOD CELL COUNT 3.22 10^6/uL (4.18-5.33); RED CELL DISTRIBUTION WIDTH 15.9 % (11.5-15.2)
[2016-12-04 05:44] LABS: ADD SCAN? NO; LEFT SHIFT FLG 210 (0-99); O2 CONCENTRATIION 60 % (0-100); P/F RATIO 137 RATIO
[2016-12-04 05:45] LABS: I-TIME 0.8 SECS; PATIENT RATE 22; PIP 33
[2016-12-04 06:20] LABS: MAGNESIUM 2.3 mg/dL (1.6-2.3)
[2016-12-04 06:57] LABS: PLATELET ESTIMATE DECREASED (ADEQ)
[2016-12-04 07:00] LABS: POLYCHROMASIA 1+
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
[2016-12-04] MEDS: PROPOFOL/EMULSION 100 ML IV SCH (08:27)
[2016-12-04] MEDS: FAMOTIDINE 20 MG/NACL 50 ML IV SCH (10:04)
[2016-12-04] MEDS: ERTAPENEM 1 GM in NS 100 ML IV SCH (10:04)
[2016-12-04] MEDS: PARoxetine HCL 10 MG TAB TUBE SCH (10:05)
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
--- NOTE | 2016-12-04 17:21 | ASMTCMCOM ---
CM Note CM Note Notes: A family meeting was held today (see notes) for the family of patient. Patient's stated he was concerned about patient's sister, Patricia who arrives this weekend. Pat is upset and can be reactive/emotional. Pat is on a lot of medications and it sounded as if she might not be completely stable, although the family did not say this directly. Vlad is asking our help to make sure boundaries are maintained and we agreed to encourage her to come for short visits with plenty of rest in between. Vlad expressed he wants his to have the best of medical care but if there are good rehab facilities closer to [place], he would like to consider them first. Vlad also expressed he would like a family meeting once per week while patient is in the ICU. Daughter Samantha can do conference calls on , so we will schedule on so she can participate. Vlad was informed that Sadia and I will be the case managment team to help him with issues as they arise. Vlad requested help with talking with patient re: emotional support and counseling for trauma and medical conditions. He let us know she has had some problems with depression in the past. I agreed to talk with patient when the time is right about the need for emotional support with trauma and resources. BRIANA will follow. Date Signed: 12/04/2016 05:21 PM Electronically Signed By:Mili Gaston
[2016-12-04] MEDS: HEPARIN/DEXTROSE 500 ML IV SCH (20:00)
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
[2016-12-05] MEDS: PROPOFOL/EMULSION 100 ML IV SCH (00:01)
[2016-12-05 06:28] LABS: ABSOLUTE NRBC COUNT 0.03 10^3/uL (0-0.01); ADD DIFF? YES; ADD MORPH? NO; ATYPICAL LYMPHOCYTE FLAG 90 (0-99); FRAGMENT RBC FLAG 0 (0-99); HEMATOCRIT 27.1 % (38.0-47.0); HEMOGLOBIN 9.2 g/dL (12.6-16.3); LIPEMIA HEMOLYSIS FLAG 90 (0-99); MEAN CELL HEMOGLOBIN 29.4 pg (27.9-34.1); MEAN CELL HEMOGLOBIN CONCENTR. 33.9 g/dL (32.4-36.7); MEAN CELL VOLUME 86.6 fL (81.5-99.8); MEAN PLATELET VOLUME 11.6 fL (8.7-11.7); NRBC-AUTO% 0.3 % (0.0-0.2); PLATELET CLUMPS FLAG 0 (0-99); PLATELET COUNT 137 10^3/uL (150-400); RED BLOOD CELL COUNT 3.13 10^6/uL (4.18-5.33); RED CELL DISTRIBUTION WIDTH 16.2 % (11.5-15.2)
[2016-12-05 06:40] LABS: LEFT SHIFT FLG 190 (0-99)
[2016-12-05 06:41] LABS: ADD SCAN? NO
[2016-12-05 06:47] LABS: ALANINE AMINOTRANSFERASE 55 IU/L (9-52); ALKALINE PHOSPHATASE 111 IU/L (38-126); ANION GAP 11 mEq/L (8-16); ASPARTATE AMINOTRANSFERASE 57 IU/L (14-46); BILIRUBIN,TOTAL 1.4 mg/dL (0.1-1.4); CALCIUM 7.6 mg/dL (8.5-10.4); CARBON DIOXIDE 21 mEq/l (22-31); CHLORIDE 114 mEq/L (97-110); GLOMERULAR FILTRATION RATE 25; GLUCOSE 117 mg/dL (70-100); POTASSIUM 3.2 mEq/L (3.5-5.2); SODIUM 146 mEq/L (134-144); TOTAL PROTEIN 4.2 g/dL (6.3-8.2)
[2016-12-05] MEDS: HEPARIN 10,000 UNIT/10 ML MDV IVP PRN ×2 (07:03→21:42)
[2016-12-05] MEDS: HEPARIN/DEXTROSE 500 ML IV SCH (07:04)
[2016-12-05 07:21] LABS: HYPOCHROMIA 1+; MICROCYTES 1+; PLATELET ESTIMATE DECREASED (ADEQ); POLYCHROMASIA 1+
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
[2016-12-05 10:14] LABS: BASE EXCESS -2.1 mEq/L (-2.5-2.5); BICARBONATE 20 mEq/L (22-26); MEASURED OXYGEN SATURATION 98 % (92-95); PCO2 27 mmHg (34-38); PO2 94 mmHg (65-75); TCO2 21 mEq/L (23-27)
[2016-12-05 10:15] LABS: CPAP YES; END TIDAL CO2 37; O2 CONCENTRATIION 40 % (0-100); P/F RATIO 235 RATIO; PATIENT RATE 19
[2016-12-05 10:16] LABS: PRESSURE SUPPORT 7
[2016-12-05] MEDS: FAMOTIDINE 20 MG/NACL 50 ML IV SCH (10:34)
[2016-12-05] MEDS: PARoxetine HCL 10 MG TAB TUBE SCH (10:34)
[2016-12-05] MEDS: ERTAPENEM 1 GM in NS 100 ML IV SCH (10:34)
[2016-12-05] MEDS ORDERED: POTASSIUM CL 20 MEQ/15 ML UDCUP PO ONE (11:18)
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
[2016-12-05] MEDS ORDERED: D5W 1,000 ML IV SCH ×2 (11:30→19:15)
[2016-12-05] MEDS ORDERED: NALOXONE HCL 0.4 MG/ML INJ IVP ONE (12:39)
--- NOTE | 2016-12-05 15:47 | ASMTCMCOM ---
CM Note CM Note Notes: Patient will go for a cat scan this afternoon if she still has not woken up. Patient's daughter Samantha returns to [place] today. Pat, patient's sister will arrive tomorrow. CM will follow. Date Signed: 12/05/2016 03:46 PM Electronically Signed By:Mili Gaston
--- NOTE | 2016-12-05 15:48 | TRAUMAPN ---
- Problem/Surgery Performed (1) CVA (cerebral vascular accident) Assessment/Plan: 12/05/2016 Patient was om weaning trial this AM. Sedation had been stopped several hours earlier but she remained unarousable. a amps of narcan tried. She became tachypneic and tachycardic but failed to wake up. Because there had been a SAH noted on admission and heparin had been used for a presumed portal vein thrombosis, an extension of her bleed was entertained. A follow up head CT showed a left cerebellar infarct as well as two left )cerebral infarcts ( posterior cerebral and middle cerebral distributions). A follow up carotid and cardiac echo is pending as well as an MRI of her brain to further quantify the problem. Qualifiers: CVA mechanism: embolism Precerebral and cerebral artery: unspecified cerebral artery Laterality of affected vessel: L Qualified Code(s): I63.40 - Cerebral infarction due to embolism of unspecified cerebral artery (2) Pneumothorax on right Assessment/Plan: No air leak, off suction x 24 hours (3) Respiratory insufficiency Assessment/Plan: Improved, tolerating CPAP wean but with above findings with continue respiratory support (4) Nutrition deficiency due to insufficient food Assessment/Plan: Tube feeding progressing. no stool yet (5) Portal vein thrombosis Assessment/Plan: On heparin, will reassess with ultrasound tomorrow Assessment/Plan: As above - further data pending Subjective: patient intubated and non-responsive Objective: Vital Signs Temp Pulse Resp BP Pulse Ox 101.6 C H 117 H 29 H 152/78 H 92 12/05/16 11:46 12/05/16 11:46 12/05/16 11:46 12/05/16 11:46 12/05/16 11:46 Laboratory Results 12/05/16 06:15 12/05/16 06:15 12/04/16 12/05/16 12/06/16 05:59 05:59 05:59 Intake Total 1457 3598 Output Total 6845 1590 Balance -1458 2007 PT 16.0 SEC (12.0-15.0) H 12/03/16 10:52 INR 1.28 (0.83-1.16) H 12/03/16 10:52 - C-Spine Clearance Cervical Spine Cleared: Yes Provider who Cleared Cervical Spine: Cantu Physical Exam - Physical Exam General Appearance: obtunded EENT: ET tube Respiratory: chest non-tender, normal breath sounds Cardiac/Chest: regular rate, rhythm Abdomen: non-tender, soft Pelvic Exam: deferred Rectal: deferred Skin: normal color, warm/dry Time Spent w/Patient (minutes): 45
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
[2016-12-05] MEDS: ACETAMINOPHEN 650 MG/20.3 ML UDCUP TUBE SCH (21:54)
[2016-12-06] MEDS: HEPARIN/DEXTROSE 500 ML IV SCH ×3 (01:03→20:33)
[2016-12-06 06:21] LABS: ABSOLUTE NRBC COUNT 0.07 10^3/uL (0-0.01); ADD DIFF? YES; ADD MORPH? NO; FRAGMENT RBC FLAG 0 (0-99); HEMATOCRIT 30.4 % (38.0-47.0); HEMOGLOBIN 10.3 g/dL (12.6-16.3); LIPEMIA HEMOLYSIS FLAG 90 (0-99); MEAN CELL HEMOGLOBIN 29.7 pg (27.9-34.1); MEAN CELL HEMOGLOBIN CONCENTR. 33.9 g/dL (32.4-36.7); MEAN CELL VOLUME 87.6 fL (81.5-99.8); MEAN PLATELET VOLUME 11.1 fL (8.7-11.7); NRBC-AUTO% 0.4 % (0.0-0.2); PLATELET CLUMPS FLAG 0 (0-99); PLATELET COUNT 150 10^3/uL (150-400); RED BLOOD CELL COUNT 3.47 10^6/uL (4.18-5.33)
[2016-12-06 06:23] LABS: ADD SCAN? NO; ATYPICAL LYMPHOCYTE FLAG 110 (0-99); LEFT SHIFT FLG 150 (0-99)
[2016-12-06] MEDS: ACETAMINOPHEN 650 MG/20.3 ML UDCUP TUBE SCH ×3 (06:28→22:10)
[2016-12-06 06:40] LABS: ALANINE AMINOTRANSFERASE 53 IU/L (9-52); ALBUMIN 2.6 g/dL (3.5-5.0); ALKALINE PHOSPHATASE 148 IU/L (38-126); ANION GAP 13 mEq/L (8-16); ASPARTATE AMINOTRANSFERASE 65 IU/L (14-46); BILIRUBIN,TOTAL 1.4 mg/dL (0.1-1.4); CALCIUM 7.8 mg/dL (8.5-10.4); CARBON DIOXIDE 21 mEq/l (22-31); CHLORIDE 113 mEq/L (97-110); CREATININE 1.9 mg/dL (0.6-1.0); GLOMERULAR FILTRATION RATE 27; GLUCOSE 140 mg/dL (70-100); POTASSIUM 3.2 mEq/L (3.5-5.2); SODIUM 147 mEq/L (134-144); TOTAL PROTEIN 5.2 g/dL (6.3-8.2)
[2016-12-06 07:08] LABS: KERATOCYTES 1+; MICROCYTES 1+; PLATELET ESTIMATE DECREASED (ADEQ); POLYCHROMASIA 1+
[2016-12-06] MEDS: PARoxetine HCL 10 MG TAB TUBE SCH (09:02)
[2016-12-06] MEDS: ERTAPENEM 1 GM in NS 100 ML IV SCH (09:02)
[2016-12-06] MEDS: FAMOTIDINE 20 MG/NACL 50 ML IV SCH (09:02)
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
--- NOTE | 2016-12-06 12:57 | TRAUMAPN ---
- Problem/Surgery Performed (1) CVA (cerebral vascular accident) Assessment/Plan: 12/05/2016 Patient was on weaning trial this AM. Sedation had been stopped several hours earlier but she remained unarousable. 2 amps of narcan tried. She became tachypneic and tachycardic but failed to wake up. Because there had been a SAH noted on admission and heparin had been used for a presumed portal vein thrombosis, an extension of her bleed was entertained. A follow up head CT showed a left cerebellar infarct as well as two left )cerebral infarcts ( posterior cerebral and middle cerebral distributions). A follow up carotid and cardiac echo is pending as well as an MRI of her brain to further quantify the problem. 12/06/2016 MRI shows multiple findings consistent wit an embolic process. A Cardiac echo with bubble study today to evaluate for right to left shunt. Eduardo Bonner and Papi' input greatly appreciated. Family well briefed and has a good comprehension of the situation. Supportive care will continue. Prognosis grave. She is now a DNR Qualifiers: CVA mechanism: embolism Precerebral and cerebral artery: unspecified cerebral artery Laterality of affected vessel: L Qualified Code(s): I63.40 - Cerebral infarction due to embolism of unspecified cerebral artery (2) Pneumothorax on right Assessment/Plan: 12/05/2016 No air leak, off suction x 24 hours 12/06/2016 Still no air leak, lung up on CXR, Fluid output minimal. Given current situation will leave tube in at this time. (3) Respiratory insufficiency Assessment/Plan: 12/05/2016 Improved, tolerating CPAP wean but with above findings with continue respiratory support 12/06/2016 Wean stopped yesterday, back on vent pending change in neuro status. (4) Nutrition deficiency due to insufficient food Assessment/Plan: 12/05/2016 Tube feeding progressing. no stool yet 12/06/2016 Now at goals. Dietary to continue to adjust. Positive bowel sounds. Has produced stool. (5) Portal vein thrombosis Assessment/Plan: 12/05/2016 On heparin, will reassess with ultrasound tomorrow 12/06/2016 As there is nothing that would be done differently, ultrasound cancelled. (6) Pyrexia of unknown origin Assessment/Plan: 12/06/2016 Presume temp due to cerebral necrosis. Tylenol ineffective. Ice packs in place. Sputum sent, Blood cultures sent, Urine culture sent. Doubt intra-abdominal source since GI tract functioning. Chest tube and ANGEILA drainage serosanguineous. Assessment/Plan: 12/05/2016 As above - further data pending 12/06/2016 This is a grave turn of events. Now DNR - will continue supportive care in hopes of improvement. Subjective: 12/06/2016 Intubated, coma Objective: Vital Signs Temp Pulse Resp BP Pulse Ox 36.9 C 98 31 H 128/70 H 96 12/06/16 12:00 12/06/16 12:00 12/06/16 12:00 12/06/16 12:00 12/06/16 12:00 Microbiology 12/05/16 21:37 - Final Sputum, Induced/Suctioned Laboratory Results 12/06/16 05:45 12/06/16 05:45 12/05/16 12/06/16 12/07/16 05:59 05:59 05:59 Intake Total 3598 2552.2 Output Total 1590 2920 Balance 2007 -367.8 PT 16.0 SEC (12.0-15.0) H 12/03/16 10:52 INR 1.28 (0.83-1.16) H 12/03/16 10:52 - C-Spine Clearance Cervical Spine Cleared: Yes Provider who Cleared Cervical Spine: Pepe Physical Exam - Physical Exam General Appearance: unresponsive, obese Neck: full range of motion, supple Respiratory: chest non-tender, lungs clear, normal breath sounds, other ( Incomplete right lung expansion continues) Cardiac/Chest: regular rate, rhythm Abdomen: normal bowel sounds, non-tender, soft Pelvic Exam: deferred Rectal: deferred Skin: normal color, warm/dry Time Spent w/Patient (minutes): 35
[2016-12-06 14:51] LABS: BASE EXCESS -1.5 mEq/L (-2.5-2.5); BICARBONATE 21 mEq/L (22-26); MEASURED OXYGEN SATURATION 95 % (92-95); PCO2 28 mmHg (34-38); PO2 73 mmHg (65-75); TCO2 21 mEq/L (23-27)
[2016-12-06 14:52] LABS: END TIDAL CO2 36; O2 CONCENTRATIION 40 % (0-100); P/F RATIO 183 RATIO; PATIENT RATE 30; SIMV YES
[2016-12-06 14:53] LABS: PRESSURE SUPPORT 7
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
[2016-12-06] MEDS ORDERED: POTASSIUM CL 20 MEQ/15 ML UDCUP PO ONE (15:45)
--- NOTE | 2016-12-06 17:11 | ECHO ---
[id number] + + [address] : : [place] [address] : : [phone] + + Adult Echocardiographic Report + --+ :Name: Nita MORENO Date: 12/06/2016 01:41 PM : : Hospital Admission Number: [id number] Location: 2 54: :: 1950 Gender: Female Height: 66 in : :Age: 66 yrs Race: WH Weight: 214 lb : : : : BSA: 2.1 meters2 : + --+ [facility] Injection of contrast documented an interatrial shunt. Conclusion LTD Bubble study. Contrast injection was performed. Injection of contrast documented an interatrial shunt. Final Reading Physician: Franco Bowden signed on 12/06/2016 05:09 PM Ordering Physician: Amador Hill Performed By: Ana Laura Guzman
--- NOTE | 2016-12-06 19:48 | GOP ---
[f rep st] OPERATIVE REPORT DATE OF OPERATION: 12/06/2016 SURGEON: Amador Hill MD PREOPERATIVE DIAGNOSIS: Intubated patient. POSTOPERATIVE DIAGNOSIS: Intubated patient. PROCEDURE PERFORMED: Placement of a left femoral arterial line. FINDINGS: patient A-line in left femoral artery. DESCRIPTION OF PROCEDURE: The patient is quite edematous at this point. It is difficult to palpate a left femoral artery. The left groin was carefully clipped. Ultrasound was used to identify the location of the artery. The skin was marked appropriately. The ultrasound gel was removed. The groin was carefully prepped and draped. Using a sterile technique, the artery was easily entered. The syringe was removed from the needle and the guidewire was passed without difficulty. The needle was removed. The arterial line was carefully passed over the guidewire and then secured in position. At this point, the guidewire was removed and the monitoring line is attached. Betadine was placed at the puncture site. A 4 x 4 folded to 2 x 2 size was positioned. A Tegaderm was placed over it. The line was secured with tape distal to the suture line. A good waveform is detected. The patient tolerated the procedure well. /[id number]/MODL MTDD
[2016-12-07] MEDS: HEPARIN/DEXTROSE 500 ML IV SCH (04:22)
[2016-12-07 05:24] LABS: ABSOLUTE NRBC COUNT 0.03 10^3/uL (0-0.01); ADD DIFF? YES; ADD MORPH? NO; ATYPICAL LYMPHOCYTE FLAG 40 (0-99); FRAGMENT RBC FLAG 0 (0-99); HEMATOCRIT 29.5 % (38.0-47.0); HEMOGLOBIN 9.8 g/dL (12.6-16.3); LIPEMIA HEMOLYSIS FLAG 80 (0-99); MEAN CELL HEMOGLOBIN 29.2 pg (27.9-34.1); MEAN CELL HEMOGLOBIN CONCENTR. 33.2 g/dL (32.4-36.7); MEAN CELL VOLUME 87.8 fL (81.5-99.8); MEAN PLATELET VOLUME 11.8 fL (8.7-11.7); NRBC-AUTO% 0.1 % (0.0-0.2); PLATELET CLUMPS FLAG 0 (0-99); PLATELET COUNT 66 10^3/uL (150-400); RED BLOOD CELL COUNT 3.36 10^6/uL (4.18-5.33); RED CELL DISTRIBUTION WIDTH 16.1 % (11.5-15.2)
[2016-12-07 05:26] LABS: ADD SCAN? NO; LEFT SHIFT FLG 120 (0-99)
[2016-12-07 05:52] LABS: ALANINE AMINOTRANSFERASE 52 IU/L (9-52); ALBUMIN 2.3 g/dL (3.5-5.0); ALKALINE PHOSPHATASE 137 IU/L (38-126); ANION GAP 9 mEq/L (8-16); ASPARTATE AMINOTRANSFERASE 61 IU/L (14-46); BILIRUBIN,TOTAL 1.5 mg/dL (0.1-1.4); CALCIUM 7.9 mg/dL (8.5-10.4); CARBON DIOXIDE 23 mEq/l (22-31); CHLORIDE 113 mEq/L (97-110); CREATININE 1.6 mg/dL (0.6-1.0); GLOMERULAR FILTRATION RATE 32; GLUCOSE 144 mg/dL (70-100); POTASSIUM 3.2 mEq/L (3.5-5.2); SODIUM 145 mEq/L (134-144); TOTAL PROTEIN 5.1 g/dL (6.3-8.2)
[2016-12-07 06:37] LABS: KERATOCYTES 1+; PLATELET ESTIMATE DECREASED (ADEQ); POLYCHROMASIA 1+
[2016-12-07] MEDS: ACETAMINOPHEN 650 MG/20.3 ML UDCUP TUBE SCH (06:37)
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
[2016-12-07] MEDS ORDERED: POTASSIUM CL 20 MEQ/15 ML UDCUP PO ONE (09:18)
--- NOTE | 2016-12-07 09:47 | NEUROPROG ---
Assessment: Severe brain damage with stroke and presumed brainstem insults as well accounting for COMA. Even with survival, meaningful recover is not expected. Family likely going to move to comfort care, which is appropriate. Total unit time of 15 minutes. Subjective: Pt unchanged in last 24 hrs Objective: Vital Signs Temp Pulse Resp BP Pulse Ox 38.8 C H 122 H 35 H 158/73 H 97 12/07/16 08:00 12/07/16 09:00 12/07/16 09:00 12/07/16 09:00 12/07/16 09:00 Microbiology 12/05/16 21:37 - Final Sputum, Induced/Suctioned Laboratory Results 12/07/16 05:10 12/07/16 05:10 12/06/16 12/07/16 12/08/16 05:59 05:59 05:59 Intake Total 2552.2 2668 Output Total 2920 3195 Balance -367.8 -527 PT 16.0 SEC (12.0-15.0) H 12/03/16 10:52 INR 1.28 (0.83-1.16) H 12/03/16 10:52 Pupil 3-4 mm and reactive. partial oculocephlics. Not opening eyes to pain. No response to pain in the extremities. Allergies/Adverse Reactions: morphine Allergy (Mild, Verified 11/29/16 12:11) Other-Enter Comments
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
[2016-12-07] MEDS ORDERED: SCOPOLAMINE HYDROBROMIDE 1 MG/3 DAYS PATCH TD PRN (09:51)
[2016-12-07] MEDS ORDERED: fentaNYL 100 MCG/2 ML INJ ONE (09:59)
[2016-12-07] MEDS: fentaNYL 100 MCG/2 ML INJ IVP SCH ×7 (10:30→21:58)
[2016-12-07] MEDS: LORazepam 2 MG/ML INJ IVP PRN ×2 (10:30→21:58)
--- NOTE | 2016-12-07 11:12 | TRAUMAPN ---
- Problem/Surgery Performed (1) CVA (cerebral vascular accident) Assessment/Plan: 12/05/2016 Patient was on weaning trial this AM. Sedation had been stopped several hours earlier but she remained unarousable. 2 amps of narcan tried. She became tachypneic and tachycardic but failed to wake up. Because there had been a SAH noted on admission and heparin had been used for a presumed portal vein thrombosis, an extension of her bleed was entertained. A follow up head CT showed a left cerebellar infarct as well as two left )cerebral infarcts ( posterior cerebral and middle cerebral distributions). A follow up carotid and cardiac echo is pending as well as an MRI of her brain to further quantify the problem. 12/06/2016 MRI shows multiple findings consistent wit an embolic process. A Cardiac echo with bubble study today to evaluate for right to left shunt. Eduardo Bonner and Papi' input greatly appreciated. Family well briefed and has a good comprehension of the situation. Supportive care will continue. Prognosis grave. She is now a DNR Qualifiers: CVA mechanism: embolism Precerebral and cerebral artery: unspecified cerebral artery Laterality of affected vessel: L Qualified Code(s): I63.40 - Cerebral infarction due to embolism of unspecified cerebral artery (2) Pneumothorax on right Assessment/Plan: 12/05/2016 No air leak, off suction x 24 hours 12/06/2016 Still no air leak, lung up on CXR, Fluid output minimal. Given current situation will leave tube in at this time. (3) Respiratory insufficiency Assessment/Plan: 12/05/2016 Improved, tolerating CPAP wean but with above findings with continue respiratory support 12/06/2016 Wean stopped yesterday, back on vent pending change in neuro status. (4) Nutrition deficiency due to insufficient food Assessment/Plan: 12/05/2016 Tube feeding progressing. no stool yet 12/06/2016 Now at goals. Dietary to continue to adjust. Positive bowel sounds. Has produced stool. (5) Portal vein thrombosis Assessment/Plan: 12/05/2016 On heparin, will reassess with ultrasound tomorrow 12/06/2016 As there is nothing that would be done differently, ultrasound cancelled. (6) Pyrexia of unknown origin Assessment/Plan: 12/06/2016 Presume temp due to cerebral necrosis. Tylenol ineffective. Ice packs in place. Sputum sent, Blood cultures sent, Urine culture sent. Doubt intra-abdominal source since GI tract functioning. Chest tube and ANGELIA drainage serosanguineous. Assessment/Plan: 12/05/2016 As above - further data pending 12/06/2016 This is a grave turn of events. Now DNR - will continue supportive care in hopes of improvement. Family has opted to withdraw care. Nothing further to add Objective: Vital Signs Temp Pulse Resp BP Pulse Ox 38.8 C H 115 H 38 H 115/59 L 84 L 12/07/16 08:00 12/07/16 10:48 12/07/16 10:48 12/07/16 10:48 12/07/16 10:48 Microbiology 12/05/16 21:37 - Final Sputum, Induced/Suctioned Laboratory Results 12/07/16 05:10 12/07/16 05:10 12/06/16 12/07/16 12/08/16 05:59 05:59 05:59 Intake Total 2552.2 2668 Output Total 2920 3195 Balance -367.8 -527 PT 16.0 SEC (12.0-15.0) H 12/03/16 10:52 INR 1.28 (0.83-1.16) H 12/03/16 10:52 - C-Spine Clearance Cervical Spine Cleared: Yes Provider who Cleared Cervical Spine: Pepe
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
[2016-12-07] MEDS: ERTAPENEM 1 GM in NS 100 ML IV SCH (12:39)
[2016-12-07] MEDS: PARoxetine HCL 10 MG TAB TUBE SCH (12:39)
[2016-12-07] MEDS: FAMOTIDINE 20 MG/NACL 50 ML IV SCH (12:39)
--- NOTE | 2016-12-07 17:06 | ASMTCMCOM ---
CM Note CM Note Notes: The family has made the decision to withdraw care at this time. Patient on comfort measures at this time. Date Signed: 12/07/2016 05:05 PM Electronically Signed By:Tessie Johns
[2016-12-08] MEDS: fentaNYL 100 MCG/2 ML INJ IVP SCH ×12 (00:09→22:00)
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
[2016-12-09] MEDS: fentaNYL 100 MCG/2 ML INJ IVP SCH ×7 (00:09→13:15)
[2016-12-09 00:11] VITALS: BP 121/57; PULSE 115; RESP 60; TEMP 101.8; O2SAT 76
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
[2016-12-09] MEDS ORDERED: fentaNYL 100 MCG/2 ML INJ IVP SCH (14:00)
[2016-12-09] MEDS: fentaNYL 100 MCG/2 ML INJ IVP PRN ×9 (14:17→23:05)
--- NOTE | 2016-12-09 16:20 | ASMTCMCOM ---
CM Note CM Note Notes: Spoke to and asked if he and family would like patient in a Hospice setting. concerned that patient may pass in the next 24 hours and would like her not to be disrupted by a move at this time. He would reconsider after 24 hours and had contacted [facility] to consult in the morning. This Mother'S Helper contacted [facility] and faxed patient info to them to consider. [facility] to contact Case Management Thursday to determine status of the patient. Date Signed: 12/09/2016 04:20 PM Electronically Signed By:Tessie Johns
[2016-12-09] MEDS: LORazepam 2 MG/ML INJ IVP PRN ×3 (18:11→23:05)
== END 2016-12-09 23:30 | disposition expired | DRG 957 ==
LOC: EDBD 09:14 → F2N 15:56
PROVIDERS: ADMIT Surgery; ATTEND Surgery
PROC: 30233N1 Transfusion of Nonautologous Red Blood Cells into Peripheral Vein, Percutaneous Approach (ICD-10-PCS; 2016-11-29)
PROC: 04LE4DZ Occlusion of Right Internal Iliac Artery with Intraluminal Device, Percutaneous Endoscopic Approach (ICD-10-PCS; principal; 2016-11-29 10:30)
PROC: 0W3G0ZZ Control Bleeding in Peritoneal Cavity, Open Approach (ICD-10-PCS; principal; 2016-11-29 10:30)
PROC: 04LF4DZ Occlusion of Left Internal Iliac Artery with Intraluminal Device, Percutaneous Endoscopic Approach (ICD-10-PCS; principal; 2016-11-29 10:30)
PROC: 0RSMXZZ Reposition Left Elbow Joint, External Approach (ICD-10-PCS; principal; 2016-11-29 10:30)
PROC: 0W9930Z Drainage of Right Pleural Cavity with Drainage Device, Percutaneous Approach (ICD-10-PCS; principal; 2016-11-29 10:30)
PROC: 02HV33Z Insertion of Infusion Device into Superior Vena Cava, Percutaneous Approach (ICD-10-PCS; principal; 2016-11-29 10:30)
PROC: 0FQG0ZZ Repair Pancreas, Open Approach (ICD-10-PCS; principal; 2016-11-29 10:30)
PROC: 0KQQ0ZZ Repair Right Upper Leg Muscle, Open Approach (ICD-10-PCS; principal; 2016-11-29 10:30)
PROC: B41C1ZZ Fluoroscopy of Pelvic Arteries using Low Osmolar Contrast (ICD-10-PCS; principal; 2016-11-29 10:30)
PROC: 0DTF0ZZ Resection of Right Large Intestine, Open Approach (ICD-10-PCS; principal; 2016-11-29 10:30)
PROC: 5A1955Z Respiratory Ventilation, Greater than 96 Consecutive Hours (ICD-10-PCS; 2016-11-30)
PROC: 0BH17EZ Insertion of Endotracheal Airway into Trachea, Via Natural or Artificial Opening (ICD-10-PCS; 2016-11-30)
PROC: 0BJ08ZZ Inspection of Tracheobronchial Tree, Via Natural or Artificial Opening Endoscopic (ICD-10-PCS; 2016-12-01)
PROC: 0BJ08ZZ Inspection of Tracheobronchial Tree, Via Natural or Artificial Opening Endoscopic (ICD-10-PCS; 2016-12-01)
PROC: 04HL33Z Insertion of Infusion Device into Left Femoral Artery, Percutaneous Approach (ICD-10-PCS; 2016-12-02)
PROC: 04HL33Z Insertion of Infusion Device into Left Femoral Artery, Percutaneous Approach (ICD-10-PCS; 2016-12-07)
DX: S36.530A Laceration of ascending [right] colon, initial encounter (principal); S22.41XA Multiple fractures of ribs, right side, initial encounter for closed fracture; S27.0XXA Traumatic pneumothorax, initial encounter; S32.811A Multiple fractures of pelvis with unstable disruption of pelvic ring, initial encounter for closed fracture; S36.26 Major laceration of pancreas; S06.6X0A Traumatic subarachnoid hemorrhage without loss of consciousness, initial encounter; S76.121A Laceration of right quadriceps muscle, fascia and tendon, initial encounter; S53.122A Posterior subluxation of left ulnohumeral joint, initial encounter; S52.022A Displaced fracture of olecranon process without intraarticular extension of left ulna, initial encounter for closed fracture; S35.511A Injury of right iliac artery, initial encounter; S35.512A Injury of left iliac artery, initial encounter; I63.412 Cerebral infarction due to embolism of left middle cerebral artery; I63.432 Cerebral infarction due to embolism of left posterior cerebral artery; V13.4XXA Pedal cycle driver injured in collision with car, pick-up truck or van in traffic accident, initial encounter; Y92.412 Parkway as the place of occurrence of the external cause; Y93.55 Activity, bike riding; Y99.8 Other external cause status; I10 Essential (primary) hypertension; J96.01 Acute respiratory failure with hypoxia; R65.11 Systemic inflammatory response syndrome (SIRS) of non-infectious origin with acute organ dysfunction; N17.0 Acute kidney failure with tubular necrosis; I81 Portal vein thrombosis; D62 Acute posthemorrhagic anemia; E87.6 Hypokalemia; E87.0 Hyperosmolality and hypernatremia; T79.6XXA Traumatic ischemia of muscle, initial encounter; R40.20 Unspecified coma; Z51.5 Encounter for palliative care; Z66 Do not resuscitate
CPT/HCPCS: 80305; 82947-QW; 85520-90; 96365; 96366; C1760; C1769; G0480; J0330; J0697; J1100; J1265; J1335; J1644; J1940; J2001; J2060; J2310; J2370; J2405; J2704; J2765; J3010; J3430; J3475; L0172; P9016; P9017; P9021; P9035; P9041; Q9967